=== PATIENT | male | born 1955 | race Caucasian/White ===

== ENCOUNTER → 2016-11-05 | Outpatient (CLI) | payer BC ==
[~2016-11-05] MED LIST: ACET-749 PO; CIPR-255 PO; CLC100 PO; DTR5 PO; FLUT0.15 NAE; LVNIS40 SQ; PSYL48.59; TAMS0.4C38 PO
== END | disposition home or self-care (01) ==
LOC: C.LABSPEC 17:11
PROVIDERS: ATTEND Urology
DX: C61 Malignant neoplasm of prostate (principal)

== ENCOUNTER 2016-11-21 04:48 | Inpatient (IN) | payer BC, OTHER ==
[2016-11-11 08:20] VITALS: BMI 38.0
--- NOTE | 2016-11-11 08:51 | PAT Medication Instructions ---
Service Date Nov 11, 2016. Current Home Medication List Tamsulosin Hcl (Flomax), 0.4 MG PO PRN Medication Instructions For Your Scheduled Surgery - Hold the following medications the morning of surgery: Tamsulosin Hcl (Flomax), 0.4 MG PO PRN - Take the following medications as scheduled the night before surgery: Tamsulosin Hcl (Flomax), 0.4 MG PO PRN If you have any questions please call us at [phone] (Kateryna Quiroz PA-C ) or [phone] or [phone]
--- NOTE | 2016-11-11 09:29 | DIAGNOSTIC IMAGING REPORT ---
CHEST PREADMISSION(PA/LAT) CLINICAL HISTORY: Preoperative evaluation. COMPARISON STUDY: No previous studies for comparison. FINDINGS: Lung volumes are normal. There is no pneumothorax or pleural effusion. Cardiac size is normal. Mediastinal contours are normal. There is no evidence of pulmonary edema. Cardiomediastinal silhouette is within normal limits. IMPRESSION: No acute cardiopulmonary findings. Electronically signed by: Jorge Alberto Boo M.D. 11/11/2016 9:27 AM Dictated Date/Time: 11/11/2016 9:26 AM
[2016-11-11 10:20] LABS: BASO % 0.2 %; BASO ABS # 0.01 K/uL (0-0.2); COMPLETE YES; EOS % 3.2 %; IG% 0.6 %; LYMPH % 30.3 %; LYMPH ABS # 1.62 K/uL (1.2-3.4); MEAN CORPUSCULAR HEMOGLOBIN 30.4 pg (25-34); MEAN CORPUSCULAR HGB CONC 34.5 g/dl (32-36); MEAN PLATELET VOLUME 9.9 fL (7.4-10.4); MONO % 9.9 %; NEUT % 55.8 %; PLATELET COUNT 159 K/uL (130-400); WHITE BLOOD COUNT 5.34 K/uL (4.8-10.8)
[2016-11-11 10:34] LABS: BUN/CREATININE RATIO 13.4 (10-20); CALCIUM 8.6 mg/dl (8.5-10.1); CREATININE 1.2 mg/dl (0.60-1.40); POTASSIUM 4.3 mmol/L (3.5-5.1)
[~2016-11-21] VITALS: Ht 172.7 cm; Wt 112.5 kg
[2016-11-21] VITALS (11 sets, daily range): BP systolic 123–160; BP diastolic 76–102; PULSE 72–90; TEMP 36.4–37.1; O2SAT 92–98; Ht 172.7 cm; Wt 112.5 kg
[~2016-11-21 04:48] MED LIST changes: -ACET-749 PO; -CIPR-255 PO; -CLC100 PO; -DTR5 PO; -FLUT0.15 NAE; -LVNIS40 SQ; -PSYL48.59
[2016-11-21] MEDS ORDERED: CEFAZOLIN 2000 MG/60 ML D5W IV SCH (06:00)
[2016-11-21] MEDS ORDERED: HEPARIN SOD 5000 UNIT/0.5 ML CARP SQ SCH ×2 (06:00→19:00)
[2016-11-21] MEDS ORDERED: LACTATED RINGER'S 1000ML 1,000 ML IV SCH (06:00)
[2016-11-21] MEDS ORDERED: HYDROmorphone INJ 2 MG/ML SYR/VIAL ONE (07:03)
[2016-11-21] MEDS ORDERED: FENTANYL CITRATE INJ 50 MCG/1 ML 2 ML VIAL ONE (07:03)
[2016-11-21] MEDS ORDERED: MIDAZOLAM HCL 1 MG/ML 2ML VIAL ONE (07:03)
[2016-11-21] MEDS ORDERED: KETAMINE HCL INJ 50 MG/ML 10 ML VIAL ONE (07:04)
[2016-11-21] MEDS ORDERED: BUPIVACAINE 0.5 % 5 MG/1 ML MPF 30ML VIAL ONE (07:05)
--- NOTE | 2016-11-21 07:08 | History & Physical Bridge Note ---
H&P Re-Evaluation Bridge Note: I have examined the patient, reviewed the History & Physical and in the interval since the performance of the History & Physical I have noted the following changes of clinical significance: No changes noted
--- NOTE | 2016-11-21 07:37 | Progress Note ---
Progress Note Date of Service Nov 21, 2016. Progress Note Pt reviewed in PDMP website. No issues found.
[2016-11-21] MEDS ORDERED: DEXAMETHASONE SOD INJ 4 MG/ML VIAL ONE (08:34)
[2016-11-21] MEDS ORDERED: LIDOCAINE HCL 2% 2 ML VIAL (20MG/ML) ONE (08:34)
[2016-11-21] MEDS ORDERED: ROCURONIUM BROMIDE 10 MG/ML 5 ML VIAL ONE (08:34)
[2016-11-21] MEDS ORDERED: GLYCOPYRROLATE INJ 0.2 MG/ML VIAL ONE (08:34)
[2016-11-21] MEDS ORDERED: PROPOFOL IV EMULSION 10 MG/ML 20 ML VIAL IV ONE (08:34)
[2016-11-21] MEDS ORDERED: EpHEDrine SULFATE 50MG/5ML SYR ONE (08:34)
[2016-11-21] MEDS ORDERED: NEOSTIGMINE METHYLSULFATE 5 MG/5 ML SYR ONE (08:34)
[2016-11-21] MEDS ORDERED: ONDANSETRON INJ 2 MG/ML 2 ML VIAL ONE (08:34)
[2016-11-21] MEDS ORDERED: FLOSEAL HEMOSTATIC MATRIX 10ML TOP ONE (09:19)
[2016-11-21] MEDS ORDERED: ONDANSETRON INJ 2 MG/ML 2 ML VIAL IV PRN ×2 (10:00→11:45)
[2016-11-21] MEDS ORDERED: ATROPINE SULFATE 0.1 MG/ML 5ML SYR IV PRN (10:00)
[2016-11-21] MEDS ORDERED: HYDROmorphone INJ 2 MG/ML SYR/VIAL IV PRN (10:00)
[2016-11-21] MEDS ORDERED: LABETALOL HCL IV 5 MG/ML 20ML IV PRN (10:00)
[2016-11-21] MEDS ORDERED: PROMETHAZINE HCL INJ 12.5 MG in SODIUM CHLORIDE 0.9% 50ML 50 ML IV PRN (10:00)
[2016-11-21] MEDS ORDERED: ACETAMINOPHEN 1000 MG/100 ML IV IV ONE (11:10)
[2016-11-21] MEDS ORDERED: ACETAMINOPHEN IV 100 ML IV PRN (11:45)
[2016-11-21] MEDS ORDERED: OXYBUTYNIN CHLORIDE 5 MG TAB PO PRN (11:45)
[2016-11-21] MEDS ORDERED: KETOROLAC TROMETHAMINE 30 MG/ML VIAL IV. PRN (11:45)
[2016-11-21] MEDS ORDERED: HYDROmorphone INJ 1 MG/ML SYR IV PRN (11:45)
[2016-11-21] MEDS ORDERED: ACETAMINOPHEN/CODEINE 300/30MG TAB PO PRN (11:45)
[2016-11-21 12:02] LABS: HEMATOCRIT 43.6 % (42-52); MEAN CELL VOLUME 88.3 fL (80-100); MEAN CORPUSCULAR HEMOGLOBIN 30.8 pg (25-34); MEAN PLATELET VOLUME 9.5 fL (7.4-10.4); PLATELET COUNT 174 K/uL (130-400); RED BLOOD COUNT 4.94 M/uL (4.7-6.1); WHITE BLOOD COUNT 10.66 K/uL (4.8-10.8)
[2016-11-21 12:06] LABS: MEAN CORPUSCULAR HGB CONC 34.9 g/dl (32-36)
[2016-11-21 12:18] LABS: PROTHROMBIN TIME (PATIENT) 10.9 SECONDS (9.0-12.0)
--- NOTE | 2016-11-21 12:23 | Anesthesiology Progress Note ---
Anesthesia Post Op Note Date & Time Nov 21, 2016 at 12:22 Vital Signs Pain Intensity: 0 Vital Signs Past 12 Hours Date Time Temp Pulse Resp B/P Pulse Ox O2 Delivery O2 Flow Rate FiO2 11/21/16 12:10 82 23 153/81 93 Nasal Cannula 4 11/21/16 12:00 89 26 147/97 95 Mask 10 11/21/16 11:50 86 17 152/89 98 Mask 10 11/21/16 11:41 36.9 82 16 163/86 99 Mask 10 11/21/16 06:10 36.7 72 22 160/102 95 Room Air Notes Mental Status: alert / awake / arousable, participated in evaluation Pt Amnestic to Procedure: Yes Nausea / Vomiting: adequately controlled Pain: adequately controlled Airway Patency, RR, SpO2: stable & adequate BP & HR: stable & adequate Hydration State: stable & adequate Anesthetic Complications: no major complications apparent
--- NOTE | 2016-11-21 12:32 | [facility] Post Operative Brief Note ---
Immediate Operative Summary Operative Date Nov 21, 2016. Pre-Operative Diagnosis Nena 4+3 Prostate Cancer Post-Operative Diagnosis Nena 4+3 Prostate Cancer Procedure(s) Performed Robot Assisted Laparoscopic Radical Retropubic Prostatectomy with bilateral pelvic lymph node dissection Surgeon Carlota Valencia Coin Machine Supervisor Surgeon(s) Cassandra Khan PA-C Estimated Blood Loss 200 cc Findings Watertight anastomosis, no rectal injury Specimens Prostate + seminal vesicles Periprostatic fat C: Right pelvic lymph node D: Left pelvic lymph node Drains 18 fr cruz, 10 cc H2O, #10 KINA drain LLQ Anesthesia GAET + local Complication(s) None Disposition Recovery Room / PACU
[2016-11-21 12:43] LABS: CALCIUM 8.2 mg/dl (8.5-10.1); CREATININE 1.5 mg/dl (0.60-1.40); POTASSIUM 4.2 mmol/L (3.5-5.1)
[2016-11-21] MEDS: LACTATED RINGER'S 1000ML 1,000 ML IV SCH ×2 (14:03→20:30)
[2016-11-21] MEDS: CEFAZOLIN IV 2,000 MG in DEXTROSE 5% 50ML 50 ML IV SCH ×2 (15:45→23:46)
--- NOTE | 2016-11-21 18:20 | OPERATIVE REPORT ---
DATE OF OPERATION: 11/21/2016 PREOPERATIVE DIAGNOSIS: [place] 4+3 adenocarcinoma of the prostate on the left side of the gland. POSTOPERATIVE DIAGNOSIS: Same. PROCEDURE: Robotic-assisted laparoscopic radical retropubic prostatectomy with bilateral pelvic lymph node dissection and right-sided nerve sparing dissection. SURGEON: Dr. Ruslan Valencia. BREAD DISTRIBUTOR: MICHELLE Up ESTIMATED BLOOD LOSS: 200 mL. IV FLUIDS: 700 mL of crystalloid. DRAINS LEFT IN PLACE: Include an 18 [place] Alcantara catheter to gravity drainage with 10 mL of sterile water in the balloon and #10 KINA drain in left lower quadrant. SPECIMENS SENT TO PATHOLOGY: Prostate plus seminal vesicles, periprostatic fat, right pelvic lymph node dissection and left pelvic lymph node dissection, the right being labeled with a clip. COMPLICATIONS: None. FINDINGS: Watertight anastomosis, normal intra-abdominal anatomy with no rectal or vascular injuries. BRIEF HISTORY: Mr. Staples is a pleasant 61-year-old male who I have seen as an outpatient on referral for a new diagnosis of Nena 4+3 prostate cancer on the left hand side of the prostate gland. Please see H\T\P for further details. After discussion of risks and benefits of various forms of management, he has decided upon a robotic-assisted laparoscopic radical retropubic prostatectomy to manage his disease. Seeing the pattern of his disease on biopsy, plan is for a wider dissection on the left hand side with a full nerve sparing dissection on the right and bilateral pelvic lymph node dissection. Preoperative PSA is 14. SCDs used for DVT prophylaxis as well as subcutaneous heparin and intravenous cephalosporins provided for antibiotic coverage. DESCRIPTION OF PROCEDURE: The patient was properly identified and brought to the operative suite after identification of appropriate consent on the chart, general anesthesia with endotracheal intubation was initiated and the patient was prepped and draped in a standard fashion for this procedure. sports book board attendant-out procedure was followed. All port sites were anesthetized with local prior to incision. A 12 mm supraumbilical incision was made and abdomen was entered under direct visualization using a visual obturator and then insufflated to 15 mmHg. Abdomen was inspected and noted to be free of any injury with no significant variations in the patient's anatomy. Ports were placed for a 4th arm robotic template including two 7 mm left-sided robotic ports, one 7 mm right-sided robotic port, and a 5 and 12 mm orthopedic physician assistant port. The patient was placed in Trendelenburg and robot was brought in and docked. Bladder was dropped down to the level of the pubic bone using a 0 degrees lens. A bulky fatty tissue at the level of the pelvic vasculature on both sides required early initiation of the patient's lymph node dissection to allow for good access to a relatively narrow pelvis. Left and right samples were sent and labeled appropriately. Prostate was defatted and specimen was sent as periprostatic fat. Endopelvic fascia was sharply entered and prostate was dissected free up to the level of the apex of the prostate. Dorsal venous complex was skeletonized and then controlled using a 0 Vicryl suture in a [id number] fashion on a CT1 needle. Attention was then turned to the bladder neck with a 30 degree down lens. Bladder neck was placed on traction in the fourth arm and skeletonized down to the level of the Alcantara catheter. The bladder neck was well defined and then divided. Catheter was taken within the fourth arm and used for anterior traction on the prostate gland. The posterior bladder neck was divided and dropped down to the level of the vas deferens and seminal vesicles in the midline. To assist with dissection of the seminal vesicles, the prosthetic pedicles were defined, skeletonized and then clipped using cold Weck clips on both sides. An excellent aperture to the bladder neck was appreciated. Nerve sparing dissection was initiated on the right hand side at this time. The vas, vasa and the seminal vesicles dissection was completed and fourth arm of the robot was used for traction on the prostate and the ejaculatory apparatus. Posterior dissection was completed using cold scissors dropping the rectum in the midline down to the level of the apex of the prostate. At this point, an excellent nerve sparing dissection was completed on the right hand side up to the level of the apex and on the right hand side a rim of neurovascular tissue was left on top of the prostate gland to avoid a negative margin should there be extracapsular extension. Approximately 50% of the neurovascular bundle was left in situ. At this point, attention was turned to the dorsal vascular complex which was divided using hot scissors after replacement of the Alcantara catheter. The urethra was skeletonized and then divided using cold scissors. Remaining rectourethralis fibers were divided, care being taken to avoid damage to the neurovascular bundles at the level of the apex of the prostate. Prostate was then brought up into the abdomen and placed within an EndoCatch bag for retrieval at the end of the case. Attention was turned to the pelvis where excellent hemostasis was noted. Rectum was insufflated under saline irrigation and noted to be free of any injury. Attention was then turned to the lymph node dissections, which were completed on both sides using clips and cautery as necessary for control of small vessels and lymphatics. The lymph nodes over the external iliac vein were taken up to the iliac bifurcation and the obturator fossa was dissected free using the pelvic sidewall external iliac vein and obturator nerve as the confines of the dissection. Great care was taken to avoid any injury to the obturator nerve, which was noted to be intact on both sides at the end of the case. After bilateral pelvic lymph node dissection being carried out, right-sided nodes were labeled using Weck clips. These were all placed within the second EndoCatch bag for retrieval at the end of the case. Attention was turned to the pelvis where again excellent hemostasis was appreciated. A circumferential running anastomosis at the level of the bladder neck using a V-Loc suture was completed in a double armed fashion. A silicone Alcantara catheter was visualized entering the bladder prior to completion of the case. The closure was completed and the bladder was tested with greater than 120 mL of irrigant and noted to have a watertight anastomosis. The sutures were removed and suture and instrument counts were correct. Fourth arm was removed and a #10 KINA drain was brought in via the fourth arm port. This was placed within the confines of the pelvis while avoiding placing it directly over the anastomosis. Robotic instruments were removed and robot was dedocked. Robotic scope was brought in via the orthopedic physician assistant port and the string to the EndoCatch bags were brought up through the supraumbilical port. Abdomen was desufflated and excess carbon dioxide gas was removed from the abdominal cavity as well as ports. Supraumbilical port was enlarged sufficiently to allow for easy passage of the specimen bags. These were handed off for pathologic analysis. Supraumbilical port was closed at the level of the fascia using 0 Vicryl suture on a UR-5 needle. A 2-0 silk was used to secure the drain in place and 4-0 Monocryl was used to close the skin at the other sites. Dermabond dressings were placed and anesthesia was reversed. The patient was transferred to recovery room in stable condition. FOLLOWUP CARE: The patient will be admitted to the floor for standard postoperative management. I attest to the content of the Intraoperative Record and any orders documented therein. Any exceptio ns are noted below.
[2016-11-21] MEDS: DOCUSATE SODIUM 100 MG CAP PO SCH (21:23)
[2016-11-22 03:51] VITALS: BP 134/80; PULSE 78; TEMP 36.9; O2SAT 97
[2016-11-22] MEDS: LACTATED RINGER'S 1000ML 1,000 ML IV SCH (03:53)
[2016-11-22] MEDS ORDERED: NURSING DECISION MEDICATION ORDER SCH (07:15)
[2016-11-22] MEDS: CEFAZOLIN IV 2,000 MG in DEXTROSE 5% 50ML 50 ML IV SCH (07:26)
[2016-11-22] MEDS ORDERED: COUGH DROP (SUGAR FREE) LOZ 24 LOZ/1 BOX PO PRN (07:30)
[2016-11-22 07:40] VITALS: BP 136/74; PULSE 73; TEMP 37.1; O2SAT 96
--- NOTE | 2016-11-22 08:10 | Anesthesiology Progress Note ---
Anesthesia Post Op Note Date & Time Nov 22, 2016 at 08:09 Vital Signs Pain Intensity: 0.0 Vital Signs Past 12 Hours Date Time Temp Pulse Resp B/P Pulse Ox O2 Delivery O2 Flow Rate FiO2 11/22/16 07:40 37.1 73 18 136/74 96 Room Air 11/22/16 03:51 36.9 78 16 134/80 97 Room Air 11/21/16 23:39 37.1 88 20 147/78 92 Room Air 11/21/16 23:35 Room Air Notes Mental Status: alert / awake / arousable, participated in evaluation Pt Amnestic to Procedure: Yes Nausea / Vomiting: adequately controlled Pain: adequately controlled Airway Patency, RR, SpO2: stable & adequate BP & HR: stable & adequate Hydration State: stable & adequate Anesthetic Complications: no major complications apparent
--- NOTE | 2016-11-22 08:43 | Progress Note ---
Subjective Date of Service: Nov 22, 2016. Subjective Pt evaluation today including: conversation w/ patient, physical exam, chart review, lab review, review of inpatient medication list Pain: Incisional, supraumbilical PO Intake: Andrew clears Voiding: cruz catheter in place (urine clear) 61 yo male POD#1 s/p RALRP. He notes some dizziness with attempted ambulation today but is in the bathroom washing up now with no difficulties. He complains of incisional tenderness, appropriate, + flatus, - BM. Andrew PO diet well, + appetite. Labs postop reviewed, noted yesterday, AM labs pending. KINA output low. Review of Systems Constitutional: No chills, No fever Eyes: No worsening of vision ENT: No hearing loss, No unusual epistaxis Respiratory: No shortness of breath, No wheezing Cardiac: No chest pain Abdomen: + pain, No nausea, No vomiting Male : + see HPI Neurologic: No memory loss, No paralysis Psychiatric: No depression symptoms Skin: No color change, No new/changing skin lesions Objective Vital Signs Date Time Temp Pulse Resp B/P Pulse Ox O2 Delivery O2 Flow Rate FiO2 11/22/16 07:40 37.1 73 18 136/74 96 Room Air 11/22/16 07:00 Room Air 11/22/16 03:51 36.9 78 16 134/80 97 Room Air 11/21/16 23:39 37.1 88 20 147/78 92 Room Air 11/21/16 23:35 Room Air 11/21/16 19:15 36.9 77 16 127/76 93 Room Air 11/21/16 16:00 Nasal Cannula 4.0 11/21/16 15:50 36.5 83 16 134/77 98 Nasal Cannula 4.0 11/21/16 14:50 36.4 90 20 123/79 98 Nasal Cannula 4.0 11/21/16 13:50 36.4 82 22 134/84 95 Nasal Cannula 4.0 11/21/16 13:20 36.4 87 20 127/82 92 Nasal Cannula 4.0 11/21/16 13:05 94 Nasal Cannula 4.0 11/21/16 13:00 94 Nasal Cannula 4.0 11/21/16 12:50 36.6 79 18 137/79 94 Nasal Cannula 4.0 11/21/16 12:30 81 23 147/78 94 Nasal Cannula 4 11/21/16 12:20 36.1 81 23 161/76 93 Nasal Cannula 4 11/21/16 12:10 82 23 153/81 93 Nasal Cannula 4 11/21/16 12:00 89 26 147/97 95 Mask 10 11/21/16 11:50 86 17 152/89 98 Mask 10 11/21/16 11:41 36.9 82 16 163/86 99 Mask 10 Physical Exam General Appearance: WD/WN, no apparent distress, + obese ENT: hearing grossly normal Neck: supple, no adenopathy Respiratory/Chest: no respiratory distress, no accessory muscle use Cardiovascular: no JVD Abdomen: non tender, soft, + pertinent finding (inc c/d/i, KINA in place, serosang) Extremities: non-tender Neurologic/Psychiatric: alert, oriented x 3 Skin: normal color Laboratory Results Last 24 Hours Test 11/21/16 11:55 11/22/16 04:44 White Blood Count 10.66 K/uL Red Blood Count 4.94 M/uL Hemoglobin 15.2 g/dL Hematocrit 43.6 % Mean Corpuscular Volume 88.3 fL Mean Corpuscular Hemoglobin 30.8 pg Mean Corpuscular Hemoglobin Concent 34.9 g/dl RDW Standard Deviation 41.2 fL RDW Coefficient of Variation 12.8 % Platelet Count 174 K/uL Mean Platelet Volume 9.5 fL Prothrombin Time 10.9 SECONDS Prothromb Time International Ratio 1.0 Activated Partial Thromboplast Time 25.0 SECONDS Partial Thromboplastin Ratio 1.0 Sodium Level 139 mmol/L Potassium Level 4.2 mmol/L Chloride Level 107 mmol/L Carbon Dioxide Level 27 mmol/L Anion Gap 5.0 mmol/L Blood Urea Nitrogen 17 mg/dl Creatinine 1.50 mg/dl Est Creatinine Clear Calc Drug Dose 62.1 ml/min Estimated GFR () 57.0 Estimated GFR (Non- 49.2 BUN/Creatinine Ratio 11.0 Random Glucose 167 mg/dl Calcium Level 8.2 mg/dl Assessment and Plan A/P 61 yo male POD#1 s/p RALRP, BPLND Doing well. Increase diet and activity. Anticipate DC KINA and DC home after lunch. Postop and DC instructions reviewed. F/u AM labs.
[2016-11-22] MEDS ORDERED: ENOXAPARIN 40 MG/0.4 ML SYR SQ SCH (09:00)
[2016-11-22] MEDS ORDERED: CLC100 PO ×2 (09:04)
[2016-11-22] MEDS ORDERED: LVNIS40 SQ ×2 (09:04)
[2016-11-22] MEDS ORDERED: CIPR-255 PO ×2 (09:04)
[2016-11-22] MEDS ORDERED: DTR5 PO ×2 (09:04)
[2016-11-22] MEDS ORDERED: ACET-749 PO ×2 (09:04)
--- NOTE | 2016-11-22 09:05 | Discharge Instructions ---
Discharge Instructions Date of Service Nov 22, 2016. Admission Reason for Admission: Prostate Cancer Discharge Discharge Diagnosis / Problem: Prostate Cancer Discharge Goals Goal(s): Improve function, Prevent Disease Progression Activity Recommendations Activity Limitations: per Instructions/Follow-up section 1. Do not lift >15lbs x 6 weeks. 2. No heavy exercise x 6 weeks. You may engage in light activity such as walking and stairs as tolerated. 3. No sexual intercourse until cleared by Dr. Valencia or Dr. Carroll. 4. [address] not drive x [address] while taking narcotics. 5. Finish all of the antibiotic you have been prescribed. 6. Immediately call our office at [phone] if your catheter is removed for any reason. 7. Follow-up as scheduled. Please call our office at [phone] if you need to reschedule for any reason. 8. Please have lab work done in 7 days for creatinine level prior to in office voiding trial to remove cruz. Our office will mail the order to be done at lab of your choice. . . Current Hospital Diet Hospital Diet(s): Regular Diet Discharge Diet Recommended Diet: Regular Diet Procedures Procedures Performed: Robot Assisted Laparoscopic Radical Retropubic Prostatectomy with bilateral pelvic lymph node dissection Pending Studies Studies pending at discharge: no Medical Emergencies . Who to Call and When: Medical Emergencies: If at any time you feel your situation is an emergency, please call 911 immediately. . Non-Emergent Contact Non-Emergency issues call your: Primary Care Provider, Urologist Call Non-Emergent contact if: temperature is above 101.5 . . "Provider Documentation" section prepared by Ramona Velasquez. . VTE Core Measure Inpt VTE Proph given/why not?: Enoxaparin (Lovenox)SQ, Unfractionated heparin SQ, SCD's [place] Drug Monitoring Program Search Results: no issues identified
[2016-11-22 09:11] LABS: BASO % 0.1 %; BASO ABS # 0.01 K/uL (0-0.2); COMPLETE YES; EOS % 0.2 %; HEMATOCRIT 44.1 % (42-52); IG% 0.2 %; LYMPH % 21.1 %; LYMPH ABS # 2.32 K/uL (1.2-3.4); MEAN CELL VOLUME 88.7 fL (80-100); MEAN CORPUSCULAR HEMOGLOBIN 29.6 pg (25-34); MEAN CORPUSCULAR HGB CONC 33.3 g/dl (32-36); MEAN PLATELET VOLUME 9.7 fL (7.4-10.4); NEUT % 71.4 %; PLATELET COUNT 181 K/uL (130-400); RED BLOOD COUNT 4.97 M/uL (4.7-6.1); WHITE BLOOD COUNT 11.02 K/uL (4.8-10.8)
[2016-11-22] MEDS: DOCUSATE SODIUM 100 MG CAP PO SCH (09:14)
[2016-11-22 09:34] LABS: BUN/CREATININE RATIO 11.6 (10-20); CALCIUM 8.5 mg/dl (8.5-10.1); CREATININE 1.3 mg/dl (0.60-1.40); POTASSIUM 3.9 mmol/L (3.5-5.1)
[2016-11-22 12:00] VITALS: BP 135/79; PULSE 75; TEMP 36.7; O2SAT 94
--- NOTE | 2016-12-02 10:36 | DISCHARGE SUMMARY ---
ADMITTING DIAGNOSIS: Nena 4+3 prostate cancer. DISCHARGE DIAGNOSIS: Same. PROCEDURES OVER THE COURSE OF ADMISSION: Include a robot-assisted laparoscopic radical retropubic prostatectomy with bilateral pelvic lymph node dissection on 11/29/2016. ADMITTING ATTENDING: Dr. Ruslan Valencia. COMPLICATIONS: None. BRIEF HISTORY: Mr. Staples is a pleasant 61-year-old male with a new diagnosis of prostate cancer who chose on robotic prostatectomy to manage his disease. Please see H\T\P for further details. He is being admitted for this purpose. HOSPITAL COURSE: The patient was admitted to the hospital after uncomplicated robotic prostatectomy on 11/29/2016. Please see operative report for further details. In the postoperative period, the patient's diet and activity were rapidly advanced and by postoperative day #1, he was ambulating in the hallways, tolerating a regular diet by midday and comfortable on oral pain medication. Alcantara catheter to gravity drainage was noted and KINA was putting out acceptable amounts of fluid. KINA drain was removed, a leg bag instruction was undertaken and the patient was considered stable for discharge home in the afternoon. Please see progress notes for further details. DISCHARGE INSTRUCTIONS: Please see discharge instruction sheet for further details as well as for discharge prescriptions. Outpatient appointment for a trial of void and pathology discussion confirmed. The patient is instructed to contact our service should he note any fevers, chills, nausea, vomiting or other significant difficulties in the postoperative period.
[2017-04-09] MEDS ORDERED: FLUT0.15 NAE (08:27)
[2017-06-30] MEDS ORDERED: PSYL48.59 (15:15)
== END 2016-11-22 14:24 | disposition home health service (06) | DRG 708 ==
LOC: ENRESERVDT → ENRESERVTM → C.ACU 04:48 → C.MSN 11:40
PROVIDERS: ADMIT Urology; ATTEND Urology
PROC: 07BC4ZX Excision of Pelvis Lymphatic, Percutaneous Endoscopic Approach, Diagnostic (ICD-10-PCS; principal; 2016-11-21 07:30)
PROC: 8E0W4CZ Robotic Assisted Procedure of Trunk Region, Percutaneous Endoscopic Approach (ICD-10-PCS; principal; 2016-11-21 07:30)
PROC: 0VT04ZZ Resection of Prostate, Percutaneous Endoscopic Approach (ICD-10-PCS; principal; 2016-11-21 07:30)
DX: C61 Malignant neoplasm of prostate (principal); Z85.828 Personal history of other malignant neoplasm of skin; Z80.42 Family history of malignant neoplasm of prostate; Z83.2 Family history of diseases of the blood and blood-forming organs and certain disorders involving the immune mechanism; Z82.49 Family history of ischemic heart disease and other diseases of the circulatory system; Z83.3 Family history of diabetes mellitus

== ENCOUNTER → 2016-11-28 | Outpatient (CLI) | payer BC ==
[~2016-11-28] MED LIST changes: +ACET-749 PO; +CIPR-255 PO; +CLC100 PO; +DTR5 PO; +FLUT0.15 NAE; +LVNIS40 SQ; +PSYL48.59
[2016-11-28 18:44] LABS: BLOOD UREA NITROGEN 15 mg/dl (7-18); BUN/CREATININE RATIO 12.8 (10-20); CALCIUM 8.6 mg/dl (8.5-10.1); CARBON DIOXIDE 23 mmol/L (21-32); CHLORIDE 111 mmol/L (98-107); GLUCOSE 110 mg/dl (70-99); PHOSPHORUS 2.9 mg/dl (2.5-4.9); POTASSIUM 3.7 mmol/L (3.5-5.1); SODIUM 141 mmol/L (136-145)
== END | disposition home or self-care (01) ==
LOC: C.LABMFLN 09:43
PROVIDERS: ATTEND Nurse Practitioner Family
DX: C61 Malignant neoplasm of prostate (principal)

== ENCOUNTER → 2017-01-15 | Outpatient (CLI) | payer BC ==
[~2017-01-15] MED LIST changes: -TAMS0.4C38 PO
[2017-01-15 18:10] LABS: BLOOD UREA NITROGEN 19 mg/dl (7-18); BUN/CREATININE RATIO 15.5 (10-20)
[2017-01-15 18:14] LABS: PROSTATE SPECIFIC ANTIGEN 0.255 ng/ml (0.000-4.000)
== END | disposition home or self-care (01) ==
LOC: C.LAB 17:08
PROVIDERS: ATTEND Urology
DX: C61 Malignant neoplasm of prostate (principal)

== ENCOUNTER → 2017-03-20 | Outpatient (CLI) | payer BC ==
[~2017-03-20] MED LIST changes: -PSYL48.59
== END | disposition home or self-care (01) ==
LOC: C.LABMFLN 14:27
PROVIDERS: ATTEND Urology
DX: C61 Malignant neoplasm of prostate (principal)

== ENCOUNTER → 2017-05-12 | Outpatient (CLI) | payer BC ==
[~2017-05-12] MED LIST changes: -ACET-749 PO; -CIPR-255 PO; -CLC100 PO; -DTR5 PO; -LVNIS40 SQ
[2017-05-12 11:02] LABS: BLOOD UREA NITROGEN 13 mg/dl (7-18); BUN/CREATININE RATIO 12.2 (10-20)
== END | disposition home or self-care (01) ==
LOC: C.LAB 09:50
PROVIDERS: ATTEND Urology
DX: C61 Malignant neoplasm of prostate (principal)

== ENCOUNTER → 2017-09-09 | Outpatient (CLI) | payer BC ==
--- NOTE | 2017-08-18 13:03 | Radiation Onc End of Treatmnt ---
End of Treatment Documentation Date Aug 18, 2017. Diagnosis (1) Prostate cancer Location: both lobes of the prostate Histology Subtype: adenocarcinoma Onset Date: 09/17/2016 Stage: lll Permanent Comment: Rising PSA, pretreatment PSA 14.0 Status post ultrasound-guided biopsies 04/15/2016 [place] 3+3 and 4+3 Status post robotic-assisted laparoscopic retropubic prostatectomy and bilateral lymph node dissection, right sided nerve sparing, 11/21/2016 [place] 4+3 Stage pT3a pN0M0, extraprostatic extension Post prostatectomy rising PSA, 0.321, 03/20/2017 Initiation of androgen depravation 04/30/2017 plan for a total of 6 months. Status post completion of radiation therapy 08/08/2017. He received 7020 cGy Last Edited By: Sarahy Rodriguez on Aug 18, 2017 12:53 History Mr. Staples is has a family history of prostate cancer. The patient's brother was diagnosed at age 63 and treated with a radical robotic prostatectomy. He is now age 66 and doing well. The patient was recently found to have an elevated prostate-specific antigen. He was initially treated with antibiotics but ultimately was sent to see his PCP. His prostate-specific antigen on 2015 was 14.0. On 09/17/2016 the patient underwent ultrasound-guided biopsies of the prostate by Dr. Freeman. His biopsy of the left apex was positive for adenocarcinoma in 2 of 2 cores with [place] grade 4+3 involving 50% of the core tissue sample with evidence of perineural invasion. 2 of 2 core biopsies from the left mid gland were positive for adenocarcinoma [place] grade 4+3 involving 70% of the core tissue sample without evidence of perineural invasion. 2 biopsies from the left base were positive for adenocarcinoma Nena grade 4+3 involving 70% of the core tissue sample without evidence of perineural invasion. Biopsies in the right apex were benign. 2 of 2 biopsies from the right mid gland were positive for adenocarcinoma [place] grade 3+3 involving 5% of the core tissue sample without evidence of perineural invasion. One of 2 biopsies in the right base were positive for adenocarcinoma [place] grade 3+3 involving less than 5% of the core tissue sample without perineural invasion. Therefore total of 9 out of 12 biopsies were positive. 6 of the 9 with Nena grade 4+3 and the remaining 3 biopsies were Nena grade 3+3. 6 biopsies were positive on the left gland and 3 biopsies were positive in the right gland. The patient underwent a bone scan on 10/04/2016 without evidence of metastatic disease. He underwent a CT scan of the abdomen and pelvis also on October 04 which shows no evidence of metastatic disease. Patient was seen by Dr. Ruslan Valencia in referral on 11/05/2016. His digital rectal exam was reported as unremarkable. Dr. Valencia discussed the role of radical robotic prostatectomy and the patient agreed. Therefore on 11/22/2016 the patient underwent surgery. The prostate measured 5.0 x 4.5 x 4.0 cm and was 54 g. A total of 4 lymph nodes were taken, 3 from the right pelvis and one from the left pelvis and all nodes were negative for metastatic carcinoma. The primary Hamilton pattern was 4 with the secondary pattern 3. 19% of the gland was involved by tumor. There was evidence of extraprostatic extension with the largest focus in the midportion towards the base measuring 1 cm in length and extending out into the fat 0.3 cm. The other foci did not extend more than 0.1 cm into the fat. In all of the sections the margins were free of neoplasm. The seminal vesicles were negative. The AJCC pathologic stage was therefore a pT3a pN0. Case: [id number]. Patient has recovered well from the surgery. His AUA score is very good at 7. His EPIC-CP score is 12 out of 60. His post-prostatectomy prostate-specific antigen drawn on 01/15/2017 was 0.255. This was repeated on 03/20/2017 and unfortunately showed an increase to 0.3-1. This is consistent with a non- undetectable katy. Dr. Valencia therefore asked if we would see the patient in referral to discuss with him the role of salvage radiation. He underwent hormone suppression followed by salvage radiation. Radiation was completed 08/08/2017. He received 7020 cGy. Physics Course Treatment Site [employer] Start Date End Date Elapsed Days # [place] Daily Dose (cGy) Total Dose (cGy) C1- Prostate~Bed/Nodes VMAT, 2 arcs 6X 06/12/2017 07/17/2017 36 25 180 4500 C1- Prostate Bed VMAT, 2 arcs 6X 07/18/2017 08/08/2017 22 14 180 2520 Total Dose: (cGy) 7020 Course Total Fractions 39 Course Total Elapsed Days 58 Do documented final doses agree with prescribed doses? Yes If not, explain: Is patients chart complete and accurate? Yes Chemotherapy Chemotherapy not given Hormonal suppression Additional Notes He completed his course of salvage radiation therapy. He tolerated this well. He did not require any breaks in treatment. He had minimal complaints in regards to hormone suppression. His AUA score at the beginning of treatment was 3. At the end of treatment he gave an AUA score of 4. He took Metamucil to better regulate his bowels. To help decrease nocturia he stopped taking in fluids after 8 PM. He had one episode of hematuria. He relates this to dehydration. He may have also been passing stones or gravel. He had flank discomfort. This resolved and the hematuria resolved. He is followed in urology in regards to the renal calculi also. Androgen depravation was planned for a total of 6 months. He'll continue follow-up with Dr. Valencia and his primary care physician. We asked him to return to our office in one month. At that time we will complete a cancer survivorship care plan. We'll also obtain PSA. He may call our office if he has new questions or concerns in the interim. Pain Management He denied pain before, during, and at the end of treatment. Copies To Reynaldo Ramsey D.O.; Ruslan Valencia MD, Urology
--- NOTE | 2017-08-18 13:08 | Rad Onc Survivorship Care Plan ---
Treatment Summary Health Care Providers Primary Care Provider: Roxy Glasgow Surgeon: Dr. Ruslan Valencia Radiation Oncologist: Dr. Glen Min Medical Oncologist: TRACEY Diagnosis (1) Prostate cancer Location: both lobes of the prostate Histology Subtype: adenocarcinoma Onset Date: 09/17/2016 Stage: lll Permanent Comment: Rising PSA, pretreatment PSA 14.0 Status post ultrasound-guided biopsies 04/15/2016 N[place] 3+3 and 4+3 Status post robotic-assisted laparoscopic retropubic prostatectomy and bilateral lymph node dissection, right sided nerve sparing, 11/21/2016 N[place] 4+3 Stage pT3a pN0M0, extraprostatic extension Post prostatectomy rising PSA, 0.321, 03/20/2017 Initiation of androgen depravation 04/30/2017 plan for a total of 6 months. Status post completion of radiation therapy 08/08/2017. He received 7020 cGy Last Edited By: Sarahy Rodriguez on Aug 18, 2017 12:53 Radiation Treatment Radiation: Yes Body Area Treated: prostate bed and nodes End Date (Year): 08/08/2017 Treatment: Course Treatment Site [employer] Start Date End Date Elapsed Days # [place] Daily Dose (cGy) Total Dose (cGy) C1- Prostate~Bed/Nodes VMAT, 2 arcs 6X 06/12/2017 07/17/2017 36 25 180 4500 C1- Prostate Bed VMAT, 2 arcs 6X 07/18/2017 08/08/2017 22 14 180 2520 Total Dose: (cGy) 7020 Course Total Fractions 39 Course Total Elapsed Days 58 Do documented final doses agree with prescribed doses? Yes If not, explain: Is patients chart complete and accurate? Yes Familial Cancer Assessment Genetic/Hereditary Risk Factor: Yes (Brother) Genetic Counseling: Yes Follow-Up Care Plan Ongoing Treatment Ongoing treatment needed: Yes Name / Duration / Side Effects Follow up guidelines per NCCN/ASCO/AUA/BOWEN guidelines and your oncologist and/ or urologist. You should have a PSA drawn every 6 months. Schedule of Clinicial Visits Coordinating Provider & When: Follow up with your radiation oncologist, urologist, and primary care provider. Cancer Surveillance Provider/What/When/How Often: You will follow up with our office in 6 months and then yearly. You should be seen by one physician regarding your prostate cancer every 6 months. General Health Care Please continue to see your primary care provider for all general health care recommended for a person your age, including cancer screening tests. Any symptoms should be brought to the attention of your provider: 1. Anything that represents a brand new symptom; 2. Anything that represents a persistent symptom; 3. Anything you are worried about that might be related to the cancer coming back. Possible Effects Late and/or detention effects: Following the completion of treatment, your acute side effects from radiation treatment should improve including urinary frequency, urgency, pain with urination, loose bowel movements and fatigue. Late side effects include, but are not limited to, radiation proctitis, radiation cystitis, urinary frequency/urgency, decreased urinary flow, erectile dysfunction, loose bowel movements, femoral neck fracture, bowel obstruction and abdominal adhesions. You are also at risk of developing secondary cancer. Concerns Cancer survivors may experience issues with the areas listed below. If you have any concerns in these or other areas, please speak with your doctors or nurses to find out how you can get help with them. Lifestyle / Behaviors A number of lifestyle / behaviors can affect your ongoing health, including the risk for the cancer coming back or developing another cancer. Discuss these recommendations with your doctor or nurse. : Diet Physical activity Prepared By Your Survivorship Care Plan was prepared by Sarahy Rodriguez on 08/18/17. Additional Copies To Reynaldo Ramsey D.O.; Ruslan Valencia MD, Urology
[~2017-09-09] MED LIST changes: +PSYL48.59
[2017-09-09 14:59] VITALS: BP 151/84; PULSE 88; TEMP 36.7; O2SAT 93
--- NOTE | 2017-09-11 16:59 | Radiation Oncology Follow-Up ---
Radiation Oncology Follow-Up Date of Visit Sep 09, 2017. Reason For Visit One-month follow-up and cancer survivorship care plan Radiation Completion Date Hormonal therapy;08/08/17 external radiation Diagnosis (1) Prostate cancer Status: Acute Onset Date: 09/17/2016 Location: both lobes of the prostate Histology Subtype: adenocarcinoma Stage: lll Permanent Comment: Rising PSA, pretreatment PSA 14.0 Status post ultrasound-guided biopsies 04/15/2016 [place] 3+3 and 4+3 Status post robotic-assisted laparoscopic retropubic prostatectomy and bilateral lymph node dissection, right sided nerve sparing, 11/21/2016 [place] 4+3 Stage pT3a pN0M0, extraprostatic extension Post prostatectomy rising PSA, 0.321, 03/20/2017 Initiation of androgen depravation 04/30/2017 plan for a total of 6 months. Status post completion of radiation therapy 08/08/2017. He received 7020 cGy Last Edited By: Sarahy Rodriguez on Aug 18, 2017 12:53 History of Present Illness Mr. Staples is has a family history of prostate cancer. The patient's brother was diagnosed at age 63 and treated with a radical robotic prostatectomy. He is now age 66 and doing well. The patient was recently found to have an elevated prostate-specific antigen. He was initially treated with antibiotics but ultimately was sent to see his PCP. His prostate-specific antigen on 2015 was 14.0. On 09/17/2016 the patient underwent ultrasound-guided biopsies of the prostate by Dr. Freeman. His biopsy of the left apex was positive for adenocarcinoma in 2 of 2 cores with [place] grade 4+3 involving 50% of the core tissue sample with evidence of perineural invasion. 2 of 2 core biopsies from the left mid gland were positive for adenocarcinoma Nena grade 4+3 involving 70% of the core tissue sample without evidence of perineural invasion. 2 biopsies from the left base were positive for adenocarcinoma [place] grade 4+3 involving 70% of the core tissue sample without evidence of perineural invasion. Biopsies in the right apex were benign. 2 of 2 biopsies from the right mid gland were positive for adenocarcinoma Nena grade 3+3 involving 5% of the core tissue sample without evidence of perineural invasion. One of 2 biopsies in the right base were positive for adenocarcinoma [place] grade 3+3 involving less than 5% of the core tissue sample without perineural invasion. Therefore total of 9 out of 12 biopsies were positive. 6 of the 9 with [place] grade 4+3 and the remaining 3 biopsies were Nena grade 3+3. 6 biopsies were positive on the left gland and 3 biopsies were positive in the right gland. The patient underwent a bone scan on 10/04/2016 without evidence of metastatic disease. He underwent a CT scan of the abdomen and pelvis also on October 04 which shows no evidence of metastatic disease. Patient was seen by Dr. Ruslan Valencia in referral on 11/05/2016. His digital rectal exam was reported as unremarkable. Dr. Valencia discussed the role of radical robotic prostatectomy and the patient agreed. Therefore on 11/22/2016 the patient underwent surgery. The prostate measured 5.0 x 4.5 x 4.0 cm and was 54 g. A total of 4 lymph nodes were taken, 3 from the right pelvis and one from the left pelvis and all nodes were negative for metastatic carcinoma. The primary Nena pattern was 4 with the secondary pattern 3. 19% of the gland was involved by tumor. There was evidence of extraprostatic extension with the largest focus in the midportion towards the base measuring 1 cm in length and extending out into the fat 0.3 cm. The other foci did not extend more than 0.1 cm into the fat. In all of the sections the margins were free of neoplasm. The seminal vesicles were negative. The AJCC pathologic stage was therefore a pT3a pN0. Case: [id number]. Patient has recovered well from the surgery. His AUA score is very good at 7. His EPIC-CP score is 12 out of 60. His post-prostatectomy prostate-specific antigen drawn on 01/15/2017 was 0.255. This was repeated on 03/20/2017 and unfortunately showed an increase to 0.3-1. This is consistent with a non- undetectable katy. Dr. Valencia therefore asked if we would see the patient in referral to discuss with him the role of salvage radiation. He underwent hormone suppression followed by salvage radiation. Radiation was completed 08/08/2017. He received 7020 cGy. Interim History He is doing well over the past month. Today he gave an AUA score of 4. He completed expanded prostate cancer index composite for clinical practice and gave a score of 3 of 12 and urinary incontinence symptoms. He gave a score of 2 of 12 and urinary irritation symptoms. He gave a score of 2 of 12 bowel symptoms. He gave a score of 6 of 12 and sexual symptoms. He gave a score of 0 of 12 and hormone vitality symptoms. His total was 13 of 60. He has had developed an area of dryness in the front of the scrotum. He had discussed this previously with Dr. Barber who recommended Aquaphor. This does not seem to remain in place when he exercises. He then will have a burning sensation. We also discussed had been regularly wearing a pad due to incontinence. Incontinence is greatly improved. He felt that the pad caused some of the irritation of the scrotum. Allergies Coded Allergies: Sulfamethoxazole w/Trimethoprim (Verified Allergy, Unknown, WITH OINTMENT- SKIN IRRITATION/CHART SAYS DIZZY LUNG PROBLEM, 11/21/16) Oxycodone (Verified Adverse Reaction, Intermediate, DIZZINESS,VOMITING, ) Home Medications Scheduled Fluticasone Propionate (Nasal) (Flonase Allergy Relief), 1 SPRAY NICKIE DAILY Review of Systems Gastrointestinal: Symptoms: WNL, Rectal Bleeding GI Comments: Rectal spotting he relates to hemorrhoids;No fiber supplements; Oral: Symptoms: No Problems Respiratory: Symptoms: WNL Urinary: Symptoms: WNL Skin: Symptoms: No Problems Physical Exam Fatigue: None General Appearance: no apparent distress Eyes: normal inspection, EOMI ENT: normal ENT inspection, hearing grossly normal Respiratory/Chest: lungs clear, no respiratory distress, no accessory muscle use Cardiovascular: regular rate, rhythm, no gallop, no murmur Abdomen: non tender, soft, no organomegaly Genitourinary - Male: no genital lesions, + pertinent finding (there is mild erythema of the skin of the front of the scrotum.) Extremities: no pedal edema Neurologic/Psychiatric: no motor/sensory deficits, alert, normal mood/affect Skin: warm/dry Pain Management Patient Reports Pain: No Pain Location: None Patient Preferred Pain Scale: 0 - 10 Initial Pain Intensity: 0.0 Pain Management Plan He denied pain before, during, and at the end of treatment. Laboratory Laboratory Results: were reviewed Laboratory Comments: PSA was less than 0.010 09/09/2017 Pathology Pathology Results: not applicable Imaging Imaging Studies: not applicable Assessment & Plan Plan: PSA was drawn today and he'll be notified as to results. Today because completed a cancer survivorship care plan. A copy the document was given to the patient. He was given a survivorship booklet. He'll continue regular follow-up with Dr. Valencia and his primary care physician. We discussed the area of scrotal irritation. He is going to discontinue wearing the pads and use them only when absolutely necessary. I recommended he apply the Aquaphor only at night. If this continues she can review the issue with Dr. Valencia. We asked him to return to our office in 6 months. He may call if he has any questions or concerns in the interim. Total Time In Follow-Up I spent 20 minutes speaking to the patient and performing examination. I spent 20 minutes reviewing information, preparing the survivorship document, and completing this note. Copy To Reynaldo Ramsey D.O.; Ruslan Valencia MD, Urology
== END | disposition home or self-care (01) ==
LOC: C.ONC 14:25
PROVIDERS: ATTEND Physician Assistant Medical
DX: Z08 Encounter for follow-up examination after completed treatment for malignant neoplasm (principal); Z92.3 Personal history of irradiation; Z85.46 Personal history of malignant neoplasm of prostate

== ENCOUNTER → 2017-09-30 | Outpatient (CLI) | payer BC | END | disposition home or self-care (01) | LOC: C.LABSPEC 17:51 | PROVIDERS: ATTEND Urology | DX: R31.0 Gross hematuria (principal) ==

== ENCOUNTER → 2017-12-22 | Outpatient (CLI) | payer BC ==
[~2017-12-22] MED LIST changes: -PSYL48.59
--- NOTE | 2017-12-22 12:01 | DIAGNOSTIC IMAGING REPORT ---
KUB CLINICAL HISTORY: 62 years-old Male presenting with R31.0 Hematuria. TECHNIQUE: Single supine view of the abdomen was obtained. COMPARISON: None. FINDINGS: Left ureteral stent in place. No nephrolithiasis or ureteral calculi. Moderate stool burden in the right colon. Paucity of small bowel gas, nonspecific. No gross evidence of bowel obstruction. No pneumoperitoneum allowing for supine technique. Osseous structures normal. IMPRESSION: 1. Left ureteral stent in place. No nephrolithiasis or ureteral calculi. Electronically signed by: Magno Abraham M.D. 12/22/2017 12:00 PM Dictated Date/Time: 12/22/2017 11:59 AM
[2017-12-22 15:17] LABS: BLOOD UREA NITROGEN 12 mg/dl (7-18); CREATININE 1.16 mg/dl (0.60-1.40)
== END | disposition home or self-care (01) ==
LOC: C.LAB 11:20
PROVIDERS: ATTEND Urology
DX: R31.0 Gross hematuria (principal); R32 Unspecified urinary incontinence

== ENCOUNTER → 2018-03-10 | Outpatient (CLI) | payer BC ==
[~2018-03-10] MED LIST changes: +AMLO5TAB3 PO; +CIPR-255 PO; +HYDR-5688 PO; +IBUP-1450 PO; +TAMS0.4C38 PO; +TRAM-10 PO; +potassium citrate PO
[2018-03-10 13:23] VITALS: BP 151/90; PULSE 69; TEMP 36.5; O2SAT 94
--- NOTE | 2018-03-10 16:34 | Radiation Oncology Follow-Up ---
Radiation Oncology Follow-Up Date of Visit Mar 10, 2018. Reason For Visit Six-month follow-up Radiation Completion Date finished 08-08-2017 Diagnosis (1) Prostate cancer Status: Chronic Onset Date: 09/17/2016 Location: Both lobes of the prostate Histology Subtype: Adenocarcinoma Stage: lll Permanent Comment: Rising PSA, pretreatment PSA 14.0 Status post ultrasound-guided biopsies 04/15/2016 Nena 3+3 and 4+3 Status post robotic-assisted laparoscopic retropubic prostatectomy and bilateral lymph node dissection, right sided nerve sparing, 11/21/2016 Edon 4+3 Stage pT3a pN0M0, extraprostatic extension Post prostatectomy rising PSA, 0.321, 03/20/2017 Initiation of androgen depravation 04/30/2017 plan for a total of 6 months. Status post completion of radiation therapy 08/08/2017. He received 7020 cGy Last Edited By: Sarahy Rodriguez on Aug 18, 2017 12:53 History of Present Illness Mr. Staples is has a family history of prostate cancer. The patient's brother was diagnosed at age 63 and treated with a radical robotic prostatectomy. He is now age 66 and doing well. The patient was recently found to have an elevated prostate-specific antigen. He was initially treated with antibiotics but ultimately was sent to see his PCP. His prostate-specific antigen on 2015 was 14.0. On 09/17/2016 the patient underwent ultrasound-guided biopsies of the prostate by Dr. Freeman. His biopsy of the left apex was positive for adenocarcinoma in 2 of 2 cores with Nena grade 4+3 involving 50% of the core tissue sample with evidence of perineural invasion. 2 of 2 core biopsies from the left mid gland were positive for adenocarcinoma Nena grade 4+3 involving 70% of the core tissue sample without evidence of perineural invasion. 2 biopsies from the left base were positive for adenocarcinoma Edon grade 4+3 involving 70% of the core tissue sample without evidence of perineural invasion. Biopsies in the right apex were benign. 2 of 2 biopsies from the right mid gland were positive for adenocarcinoma Nena grade 3+3 involving 5% of the core tissue sample without evidence of perineural invasion. One of 2 biopsies in the right base were positive for adenocarcinoma Nena grade 3+3 involving less than 5% of the core tissue sample without perineural invasion. Therefore total of 9 out of 12 biopsies were positive. 6 of the 9 with Edon grade 4+3 and the remaining 3 biopsies were Nena grade 3+3. 6 biopsies were positive on the left gland and 3 biopsies were positive in the right gland. The patient underwent a bone scan on 10/04/2016 without evidence of metastatic disease. He underwent a CT scan of the abdomen and pelvis also on October 04 which shows no evidence of metastatic disease. Patient was seen by Dr. Ruslan Valencia in referral on 11/05/2016. His digital rectal exam was reported as unremarkable. Dr. Valencia discussed the role of radical robotic prostatectomy and the patient agreed. Therefore on 11/22/2016 the patient underwent surgery. The prostate measured 5.0 x 4.5 x 4.0 cm and was 54 g. A total of 4 lymph nodes were taken, 3 from the right pelvis and one from the left pelvis and all nodes were negative for metastatic carcinoma. The primary Edon pattern was 4 with the secondary pattern 3. 19% of the gland was involved by tumor. There was evidence of extraprostatic extension with the largest focus in the midportion towards the base measuring 1 cm in length and extending out into the fat 0.3 cm. The other foci did not extend more than 0.1 cm into the fat. In all of the sections the margins were free of neoplasm. The seminal vesicles were negative. The AJCC pathologic stage was therefore a pT3a pN0. Case: [id number]. Patient has recovered well from the surgery. His AUA score is very good at 7. His EPIC-CP score is 12 out of 60. His post-prostatectomy prostate-specific antigen drawn on 01/15/2017 was 0.255. This was repeated on 03/20/2017 and unfortunately showed an increase to 0.3-1. This is consistent with a non- undetectable katy. Dr. Valencia therefore asked if we would see the patient in referral to discuss with him the role of salvage radiation. He underwent hormone suppression followed by salvage radiation. Radiation was completed 08/08/2017. He received 7020 cGy. Interim History He has had problems with recurrent ureteral calculi over the past 6 months. He has been followed closely by urology. He has undergone procedures for removal of stones. He has been seen on multiple occasions and urology. Today gave an AUA score of 7. At his last visit he gave a score of 4. He does have irritation when ureteral stent is in place. 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 He also is not able to get to the restroom on a regular and timely basis. Because of this he has to wear pads. On a regular day at home he has minimal issues with dribbling. He is looking forward to retiring within the next year. He completed and expanded prostate cancer index composite and gave a score of 6 of 12 and urinary incontinence symptoms. He gave a score of 3 of 12 and urinary irritation symptoms. He gave a score of 0 of 12 and bowel symptoms. He gives score of 3 of 12 and sexual symptoms. He gave a score of 2 of 12 and hormonal vitality symptoms. His total was 14 of 60. Allergies Coded Allergies: Sulfamethoxazole w/Trimethoprim (Verified Allergy, Unknown, WITH OINTMENT- SKIN IRRITATION/CHART SAYS DIZZY LUNG PROBLEM, 02/05/18) Oxycodone (Verified Adverse Reaction, Intermediate, DIZZINESS,VOMITING, 02/05/18) Home Medications Scheduled [potassium citrate ], 1 PKT PO DAILY Scheduled PRN Fluticasone Propionate (Nasal) (Flonase Allergy Relief), 1 SPRAY NICKIE DAILY PRN for Nasal Congestion Ibuprofen (Motrin), 600 MG PO Q6H PRN for Pain Tamsulosin Hcl (Flomax), 0.4 MG PO QAM PRN for DYSUERIA Tramadol (Ultram), 50 MG PO Q4H PRN for Pain Review of Systems Gastrointestinal: Symptoms: WNL Oral: Symptoms: No Problems Respiratory: Symptoms: WNL Urinary: Symptoms: Nocturia Comments: nocturia times 1-2 , urgency , Skin: Symptoms: No Problems Physical Exam Vital Signs Date Time Temp Pulse Resp B/P (MAP) Pulse Ox O2 Delivery O2 Flow Rate FiO2 03/10/18 13:23 36.5 69 20 151/90 94 Fatigue: None General Appearance: no apparent distress Eyes: normal inspection, EOMI ENT: normal ENT inspection, hearing grossly normal Respiratory/Chest: lungs clear, no respiratory distress, no accessory muscle use Cardiovascular: regular rate, rhythm, no gallop, no murmur Abdomen: non tender, soft, no organomegaly Extremities: no pedal edema Neurologic/Psychiatric: no motor/sensory deficits, alert, normal mood/affect Skin: warm/dry Pain Management Patient Reports Pain: Yes Side: Left Pain Location: across left kidney Patient Preferred Pain Scale: 0 - 10 Initial Pain Intensity: 2.0 Pain Management Plan He does not require any pain management through our office. Laboratory Laboratory Results: were reviewed, and pertinent findings noted below Laboratory Comments: He had a PSA December 22, 2017 that was less than 0.010. Pathology Pathology Results: were reviewed, and pertinent findings noted in HPI Imaging Imaging Studies: not applicable Assessment & Plan Plan: Continue regular follow-up with urology. He has follow-up appointments regards to the issues that he has had with nephrolithiasis. He is having recheck PSAs every 6 months through our office and [facility]. 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 He will be retiring in the next year. It is hoped that his symptoms will improve once he does not have to drink excess fluid. We asked him to return to our office in 1 year. He may call if he has any questions or concerns in the interim. Total Time In Follow-Up I spent 20 minutes speaking to the patient in performing examination. I spent 15 minutes reviewing information and completing this note. Copy To Reynaldo Ramsey D.O.; Ruslan Valencia MD, Urology
== END | disposition home or self-care (01) ==
LOC: C.ONC 13:12
PROVIDERS: ATTEND Physician Assistant Medical
DX: Z08 Encounter for follow-up examination after completed treatment for malignant neoplasm (principal); Z92.3 Personal history of irradiation; Z85.46 Personal history of malignant neoplasm of prostate

== ENCOUNTER → 2018-03-25 | Outpatient (CLI) | payer BC ==
[~2018-03-25] MED LIST changes: -AMLO5TAB3 PO; -CIPR-255 PO; -HYDR-5688 PO; +OPTIRAY 300 IV PRN
[2018-03-25 13:52] LABS: BLOOD UREA NITROGEN 18 mg/dl (7-18); CREATININE 1.55 mg/dl (0.60-1.40)
--- NOTE | 2018-03-25 16:07 | DIAGNOSTIC IMAGING REPORT ---
IV PYELOGRAM CLINICAL HISTORY: Nephrolithiasis. Pain secondary to ureteral stent. Urinary incontinence. COMPARISON STUDY: Renal ultrasound KUB dated 01/21/2018. Abdominal CT dated 01/09/2018. TECHNIQUE: An abdominal parole or probation officer radiograph is performed. IVP pyelogram was then performed following the IV administration of 100 cc of Optiray 300, tomographic images are acquired in the corticomedullary and excretory phases of enhancement. Overhead views of the renal collecting system and bladder were obtained in multiple obliquities both pre and post void. FINDINGS: The parole or probation officer radiograph shows a nonobstructed abdominal bowel gas pattern. The ureteral stone seen on 01/13/2018 has been removed. There is no radiographic evidence of nephrolithiasis on today's examination. The bony structures appear intact. Sclerotic change is seen in the sacroiliac joints. Following contrast menstruation there is normal enhancement and excretion from the right kidney. No right-sided hydronephrosis is seen. There is markedly delayed enhancement and excretion from the left kidney. Extended delayed imaging was performed at 1.5 hours and 2 hours. This shows moderate to severe left-sided hydronephrosis. There is no opacification of the left ureter. The right ureter opacifies normally. No evidence of urothelial lesion is seen involving the right renal pelvis or the right ureter. The bladder demonstrates a pear-shaped configuration, possibly due to previous prostatectomy (shown by CT). There is a significant post void bladder residual. The bladder is otherwise grossly unremarkable. IMPRESSION: 1. No renal calculi are clearly identified. 2. There is delayed enhancement and excretion from the left kidney with moderate to severe left-sided hydronephrosis. The cause of obstruction is not apparent on today's examination. 3. The right kidney enhances and excretes normally. There is no right-sided hydronephrosis. 4. There is a large post void bladder residual. Electronically signed by: Neo Weldon M.D. 03/25/2018 4:05 PM Dictated Date/Time: 03/25/2018 4:00 PM
== END | disposition home or self-care (01) ==
LOC: C.RAD 12:24
PROVIDERS: ATTEND Urology
DX: T83.84XA Pain due to genitourinary prosthetic devices, implants and grafts, initial encounter (principal); Y83.1 Surgical operation with implant of artificial internal device as the cause of abnormal reaction of the patient, or of later complication, without mention of misadventure at the time of the procedure; N20.0 Calculus of kidney; R32 Unspecified urinary incontinence